=== PATIENT | female | born 1970 | race Caucasian/White ===

== ENCOUNTER 2018-05-02 16:28 | Emergency (ER) | payer OTHER ==
[~2018-05-02] VITALS: Ht 152.4 cm; Wt 76.0 kg
[2018-05-02] MEDS ORDERED: SODIUM CHLORIDE 0.9% 1,000 ML IV ONE (17:09)
[2018-05-02] MEDS ORDERED: ONDANSETRON HCL 4MG/2ML INJ IV STA (17:09)
[2018-05-02] MEDS ORDERED: TETANUS, DIPHTHERIA, PERTUSSIS VAC/PF 0.5ML (>7YR OLD) IM ONE (17:15)
[2018-05-02] MEDS ORDERED: MORPHINE SULFATE 10 MG/ML CPJ IV ONE ×2 (17:15→19:00)
[2018-05-02] MEDS ORDERED: AMPICILLIN SOD/SULBACTAM NA 3 G in SODIUM CHLORIDE 0.9% 100 ML IV SCH (17:30)
[2018-05-02 19:00] LABS: BASOPHILS % 0.3 % (0.0-2.0); EOSINOPHILS % 0.6 % (0.0-5.0); HEMATOCRIT. 40.9 % (36.0-48.0); HEMOGLOBIN. 13.5 g/dL (12.0-16.0); LYMPHOCYTES % 11.5 % (20.0-50.0); MEAN PLATELET VOLUME 8.9 fl (7.4-10.4); MONOCYTES % 4.5 % (2.0-8.0); NEUTROPHILS % 83.1 % (40.0-76.0); PLATELET 314 x1000/uL (130-400); RED BLOOD CELL COUNT 4.99 mill/uL (4.2-5.4); RED CELL DISTRIBUTION WIDTH 17.8 % (11.6-14.6)
[2018-05-02 19:04] LABS: CHLORIDE 107 mEq/L (98-107)
[2018-05-02] MEDS ORDERED: KETOROLAC 30MG/ML VIAL IV ONE (21:00)
[2018-05-03] MEDS ORDERED: ONDANSETRON HCL 4MG/2ML INJ IV ONE ×3 (02:15→07:00)
[2018-05-03] MEDS ORDERED: MORPHINE SULFATE 10 MG/ML CPJ IV ONE ×3 (02:15→07:00)
[2018-05-03] MEDS ORDERED: MORPHINE SULFATE 4 MG/ML CPJ (NOT FOR IM USE) IV ONE ×2 (06:45→07:00)
[2018-05-03] MEDS ORDERED: KETOROLAC 15MG/ML VIAL IV ONE (09:30)
[2018-05-03] MEDS ORDERED: AMPICILLIN SOD/SULBACTAM NA 3 G in SODIUM CHLORIDE 0.9% 100 ML IV SCH (11:45)
[2018-05-03 12:26] VITALS: BP 113/68
== END 2018-05-03 12:29 | disposition short-term general hospital (02) ==
LOC: ER 16:28
DX: M79.642 Pain in left hand (principal); M79.631 Pain in right forearm; W54.0XXA Bitten by dog, initial encounter; Y93.89 Activity, other specified; Y92.89 Other specified places as the place of occurrence of the external cause; Y99.8 Other external cause status
CPT/HCPCS: 29125; 36415; 73090; 73130; 80053; 85025; 87040; 90471; 90715; 96365; 96375; 96376; 99285; J0295; J1885; J2270; J2405; J7030; J7050